=== PATIENT | female | born 1965 | race Caucasian/White ===

== ENCOUNTER 2023-09-17 16:02 | Emergency (ER) | payer BC, OTHER ==
[2023-09-17] MEDS ORDERED: EPINEPHrine 1MG/10ML SYRINGE 1.5IN ONE (16:03)
== END 2023-09-17 18:50 | disposition expired ==
LOC: M ED 16:02
DX: S09.90XA Unspecified injury of head, initial encounter (principal); I46.8 Cardiac arrest due to other underlying condition; F10.10 Alcohol abuse, uncomplicated; Y92.410 Unspecified street and highway as the place of occurrence of the external cause; Y93.89 Activity, other specified; Y99.9 Unspecified external cause status
CPT/HCPCS: 99283; J0171